=== PATIENT | female | born 1960 | race Caucasian/White ===

== ENCOUNTER → 2017-07-29 | Outpatient (CLI) | payer OTHER ==
[2017-07-29 20:38] LABS: Basophils % (A) 1 %; Eosinophils # (A) 0.1 k/uL (0-0.7); Eosinophils % (A) 2 %; HCT 43.9 % (34.0-46.0); HGB 14.1 gm/dL (11.4-16.0); Lymphocytes # (A) 1.7 k/uL (1.0-4.8); Lymphocytes % (A) 34 %; MCH 29.2 pg (25.0-35.0); MCHC 32.1 g/dL (31.0-37.0); MCV 91.1 fL (80.0-100.0); Mean Platelet Volume 6.8; Monocytes # (A) 0.3 k/uL (0-1.0); Monocytes % (A) 7 %; Neutrophils # (A) 2.7 k/uL (1.3-7.7); Neutrophils % (A) 54 %; Platelet Count 424 k/uL (150-450); RBC 4.82 m/uL (3.80-5.40); RDW 11.7 % (11.5-15.5); WBC 4.9 k/uL (3.8-10.6)
[2017-07-29 20:45] LABS: ALT 21 U/L (9-52); AST 25 U/L (14-36); Albumin 4.2 g/dL (3.5-5.0); Alkaline Phosphatase 116 U/L (38-126); Anion Gap 10 mmol/L; Blood Urea Nitrogen 15 mg/dL (7-17); Calcium 10.1 mg/dL (8.4-10.2); Carbon Dioxide 33 mmol/L (22-30); Chloride 100 mmol/L (98-107); Cholesterol 184 mg/dL (<200); Glucose 96 mg/dL (74-99); HDL Cholesterol 55 mg/dL (40-60); LDL Cholesterol,Calculated 105 mg/dL (0-99); Potassium 4.3 mmol/L (3.5-5.1); Sodium 143 mmol/L (137-145); Total Bilirubin 0.2 mg/dL (0.2-1.3); Total Protein 7.2 g/dL (6.3-8.2); Triglycerides 122 mg/dL (<150)
[2017-07-29 20:55] LABS: T4, Free (Free Thyroxine) 0.86 ng/dL (0.78-2.19)
[2017-07-30 00:53] LABS: Vitamin D 25 Hydroxy 27.1 ng/mL (30.0-100.0)
== END | disposition home or self-care (01) ==
LOC: MMGSC 16:36
PROVIDERS: ATTEND Family Medicine
DX: Z00.00 Encounter for general adult medical examination without abnormal findings (principal); R53.83 Other fatigue
CPT/HCPCS: 36415; 80053; 80061; 82306; 82607; 84439; 84443; 85025

== ENCOUNTER → 2017-09-07 | Outpatient (CLI) | payer OTHER | END | disposition home or self-care (01) | LOC: MMGSC 17:42 | PROVIDERS: ATTEND Family Medicine | DX: N39.0 Urinary tract infection, site not specified (principal) | CPT/HCPCS: 87077; 87086; 87186 ==

== ENCOUNTER → 2017-11-22 | Outpatient (CLI) | payer OTHER ==
--- NOTE | 2017-11-23 09:43 | MM ---
Reason for exam: screening (asymptomatic). History: Family history of breast cancer in sister at age 30, breast cancer in aunt, and breast cancer in cousin. Benign ultrasound-guided core biopsy of the left breast, 2014. Physical Findings: A clinical breast exam by your physician is recommended on an annual basis and results should be correlated with mammographic findings. MG Screening Mammo Implant/CAD Bilateral CC, MLO, and ID view(s) were taken. The breast tissue is extremely dense which could obscure a lesion on mammography. There is chronic nodularity bilaterally. There is no dominant lesion. Bilateral implants are intact. No significant changes when compared with prior studies. ASSESSMENT: Benign, BI-RAD 2 RECOMMENDATION: Routine screening mammogram of both breasts in 1 year.
== END | disposition home or self-care (01) ==
LOC: RADMAMWWP 07:05
PROVIDERS: ATTEND Obstetrics & Gynecology
DX: Z12.31 Encounter for screening mammogram for malignant neoplasm of breast (principal); Z98.82 Breast implant status
CPT/HCPCS: 77067

== ENCOUNTER → 2018-01-16 | Outpatient (CLI) | payer OTHER ==
--- NOTE | 2018-01-17 10:38 | ECHOF ---
Referral Reason:R06.02 Shortness of Breath, R63.5 Weight Gain MEASUREMENTS -------- HEIGHT: 160.0 cm WEIGHT: 66.7 kg BP: 123/67 RVIDd: 2.5 cm (< 3.3) IVSd: 0.9 cm (0.6 - 1.1) LVIDd: 3.4 cm (3.9 - 5.3) LVPWd: 0.9 cm (0.6 - 1.1) IVSs: 1.4 cm LVIDs: 2.2 cm LVPWs: 1.3 cm LA Diam: 2.8 cm (2.7 - 3.8) Ao Diam: 2.8 cm (2.0 - 3.7) AV Cusp: 2.0 cm (1.5 - 2.6) MV EXCURSION: 14.577 mm (> 18.000) MV EF SLOPE: 93 mm/s (70 - 150) EPSS: 0.7 cm MV E Joaquin: 1.14 m/s MV DecT: 251 ms MV A Joaquin: 0.74 m/s MV E/A Ratio: 1.54 RAP: 5.00 mmHg RVSP: 14.41 mmHg FINDINGS -------- Sinus rhythm. This was a technically good study. The left ventricular size is normal. Left ventricular wall thickness is normal. Overall left vent ricular systolic function is normal with, an EF between 60 - 65 %. The right ventricle is normal in size. The left atrial size is normal. The right atrium is normal in size. Lipomatous Hypertrophy of the atrial septum is present The aortic valve is trileaflet and appears structurally normal. The mitral valve leaflets are mildly thickened. Mild mitral annular calcification present. Mild tricuspid regurgitation present. Right ventricular systolic pressure is normal at < 35 mmHg. Trace/mild (physiologic) pulmonic regurgitation. The aortic root size is normal. Normal inferior vena cava with normal inspiratory collapse consistent with estimated right atrial pre ssure of 5 mmHg. There is no pericardial effusion. CONCLUSIONS -------- 1. Sinus rhythm. 2. This was a technically good study. 3. The left ventricular size is normal. 4. Left ventricular wall thickness is normal. 5. Overall left ventricular systolic function is normal with, an EF between 60 - 65 %. 6. The right ventricle is normal in size. 7. The left atrial size is normal. 8. The right atrium is normal in size. 9. Lipomatous Hypertrophy of the atrial septum is present 10. The aortic valve is trileaflet and appears structurally normal. 11. The mitral valve leaflets are mildly thickened. 12. Mild mitral annular calcification present. 13. Mild tricuspid regurgitation present. 14. Right ventricular systolic pressure is normal at < 35 mmHg. 15. Trace/mild (physiologic) pulmonic regurgitation. 16. The aortic root size is normal. 17. Normal inferior vena cava with normal inspiratory collapse consistent with estimated right atrial pressure of 5 mmHg. 18. There is no pericardial effusion. [employer] DRIVER: Marcy Denis RDCS
== END | disposition home or self-care (01) ==
LOC: RADECHMAIN 15:34
PROVIDERS: ATTEND Nurse Practitioner
DX: I07.1 Rheumatic tricuspid insufficiency (principal)
CPT/HCPCS: 93306

== ENCOUNTER 2018-01-18 07:52 | Emergency (ER) | payer OTHER ==
[2018-01-18 07:56] VITALS: BP 137/86; PULSE 72; RESP 18; TEMP 98.2
--- NOTE | 2018-01-18 08:26 | ED ---
General Adult HPI - General Chief complaint: Wound/Laceration Stated complaint: Finger Lac Time Seen by Provider: 01/18/18 08:09 Source: patient, RN notes reviewed Mode of arrival: ambulatory Limitations: no limitations - History of Present Illness Initial comments: Patient 57-year-old female presenting to the emergency room today with chief complaint of a laceration to the left thumb. Patient does admit that she was dropping things in the kitchen last night when knife caught thumb causes laceration. She does admit tetanus is up-to-date. She did just won't resolve. 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 States laceration was over 12 hours ago. - Related Data Home Medications Medication Instructions Recorded Confirmed No Known Home Medications 01/18/18 01/18/18 Allergies Allergy/AdvReac Type Severity Reaction Status Date / Time ampicillin [From Unasyn] Allergy Unknown Verified 01/18/18 07:56 sulbactam [From Unasyn] Allergy Unknown Verified 01/18/18 07:56 Review of Systems ROS Statement: Those systems with pertinent positive or pertinent negative responses have been documented in the HPI. ROS Other: All systems not noted in ROS Statement are negative. Past Medical History Past Medical History: No Reported History History of Any Multi-Drug Resistant Organisms: None Reported Additional Past Surgical History / Comment(s): bladder suspension Past Psychological History: No Psychological Hx Reported Smoking Status: Never smoker Past Alcohol Use History: None Reported Past Drug Use History: None Reported General Exam - General Exam Comments Initial Comments: General: The patient is awake and alert, in no distress, and does not appear acutely ill. Eye: extra-ocular movements are intact. No nystagmus. There is normal conjunctiva bilaterally. No signs of icterus. Ears, nose, mouth and throat: There are moist mucous membranes and no oral lesions. Neck: The neck is supple, there is no tenderness or JVD. Musculoskeletal: Normal ROM, no tenderness. Strength 5/5. Sensation intact. Neurological: A&O x 3. CN II-XII intact, There are no obvious motor or sensory deficits. Coordination appears grossly intact. Speech is normal. Skin: Patient does have a 2 cm linear laceration to the medial aspect of the left thumb. No active bleeding. Psychiatric: Cooperative, appropriate mood & affect, normal judgment. Limitations: no limitations Course Vital Signs 01/18/18 07:54 Temperature 98.2 F Pulse Rate 72 Respiratory 18 Rate Blood Pressure 137/86 O2 Sat by Pulse 99 Oximetry Medical Decision Making - Medical Decision Making Patient tetanus is up-to-date. Lacerations has been open for over 12 hours. Laceration site was cleaned by nursing staff and Steri-Strips applied. Advised patient suturing at this time is not recommended due to length of wound being opened advised to watch for any infections. Advised return for any concerns. Disposition Clinical Impression: Laceration Disposition: HOME SELF-CARE Condition: Good Instructions: Laceration (ED) Additional Instructions: Please change dressing twice daily. Please watch for any signs of infection which may include increased pain, swelling, redness, fever or chills. Please return to emergency room for any signs of infection or any other concerns. Is patient prescribed a controlled substance at d/c from ED?: No Referrals: Tavia Hopkins MD [Primary Care Provider] - 1-2 days Time of Disposition: 08:25
== END 2018-01-18 08:55 | disposition home or self-care (01) ==
LOC: EC 07:52
DX: S61.012A Laceration without foreign body of left thumb without damage to nail, initial encounter (principal); Z88.0 Allergy status to penicillin; Z88.1 Allergy status to other antibiotic agents; W26.0XXA Contact with knife, initial encounter; Y92.009 Unspecified place in unspecified non-institutional (private) residence as the place of occurrence of the external cause; Y93.89 Activity, other specified
CPT/HCPCS: 99282

== ENCOUNTER → 2018-02-16 | Outpatient (CLI) | payer OTHER | END | disposition home or self-care (01) | LOC: LABWHC1 08:51 | PROVIDERS: ATTEND Internal Medicine Interventional Cardiology | DX: E55.9 Vitamin D deficiency, unspecified (principal) | CPT/HCPCS: 36415; 82306 ==

== ENCOUNTER → 2018-04-27 | Outpatient (CLI) | payer OTHER ==
--- NOTE | 2018-04-27 08:46 | US ---
EXAMINATION TYPE: US abdomen complete DATE OF EXAM: 04/27/2018 COMPARISON: NONE CLINICAL HISTORY: R10.11 R upper quad pain, R14.0 Abd bloat. RUQ pain, bloating EXAM MEASUREMENTS: Liver Length: 13.5 cm Gallbladder Wall: 0.2 cm CBD: 0.4 cm CHD: 0.3 cm Spleen: 9.6 cm Right Kidney: 9.3 x 3.8 x 4.0 cm Left Kidney: 10.3 x 4.3 x 3.9 cm Pancreas: wnl Liver: wnl Gallbladder: wnl, fold seen Evidence for sonographic Sommer's sign: neg CBD: wnl CHD: wnl Spleen: wnl Right Kidney: Medial anechoic lesion at hilum - 1.8 x 1.5 cm, Lower pole not well visualized due to overlying bowel gas Left Kidney: wnl Upper IVC: wnl Abd Aorta: wnl The visualized liver is slightly heterogeneous. The intrahepatic portion of the IVC and visualized a bdominal aorta are within normal limits. There is no evidence of cholelithiasis. Common bile duct i s unremarkable. The visualized portions of the pancreas are homogenous. The spleen is unremarkable. Kidneys are symmetric and free of hydronephrosis. No renal lesions are seen. IMPRESSION: Technologist galloway 1.8 x 1.5 cm oval hypoechoic lesion centrally mid pole level right kid fredrick. Not definitive simple cyst on ultrasound. Could reflect extrarenal pelvis as there is no signifi cant calyceal dilatation but central solid lesion cannot be excluded and follow-up is advised with re nal protocol contrast-enhanced CT or MRI.
--- NOTE | 2018-04-27 08:50 | US ---
EXAMINATION TYPE: US pelvis complete transvag DATE OF EXAM: 04/27/2018 COMPARISON: NONE CLINICAL HISTORY: R10.11 R upper quad pain, R14.0 Abd bloat. Patient states having an endometrial abl ation in 1998. TECHNIQUE: Transvaginal (TV) and Transabdominal (TA) . Transabdominal sonographic images of the pel vis were acquired. Transvaginal sonographic images were medically necessary to better assess the fol lowing anatomy: Ovaries Date of LMP: 1998, EXAM MEASUREMENTS: Uterus: 5.6 x 3.2 x 2.6 cm Endometrial Stripe: 0.3 cm Right Ovary: 1.6 x 1.0 x 0.8 cm Left Ovary: 1.9 x 1.1 x 1.0 cm 1. Uterus: Anteverted Appears small in size. Heterogenous. 2. Endometrium: Trace Fluid seen within canal 3. Right Ovary: appears small in size 4. Left Ovary: appears small in size 5. Bilateral Adnexa: wnl 6. Posterior cul-de-sac: no free fluid 7. Cervix- possible echogenic focus with shadow - 0.6 x 0.4 cm favor dystrophic superficial calcifica tion Heterogeneous anteverted uterus is seen. Endometrium is not well visualized and may be atrophic. No f ree fluid in pelvis. Both ovaries are identified. No suspicious adnexal lesions are seen. IMPRESSION: No significant finding is seen to account for patient's symptoms.
== END | disposition home or self-care (01) ==
LOC: RADUSWWP 06:58
PROVIDERS: ATTEND Family Medicine
DX: N28.9 Disorder of kidney and ureter, unspecified (principal); R10.11 Right upper quadrant pain; R14.0 Abdominal distension (gaseous)
CPT/HCPCS: 76700; 76830; 76856